=== PATIENT | female | born 1945 | race Caucasian/White ===

== ENCOUNTER 2021-04-24 20:41 | Emergency (ER) | payer OTHER ==
[~2021-04-24] VITALS: Ht 152.4 cm; Wt 75.8 kg
[2021-04-24 21:15] VITALS: BP 165/93
[2021-04-24] MEDS ORDERED: LIDOCAINE MPF 1% 10 MG/ML VIAL INJ ONE (22:35)
[2021-04-24] MEDS ORDERED: IBUPROFEN 600 MG TAB PO ONE (23:35)
[2021-04-24] MEDS ORDERED: IBUP-2213 PO (23:44)
[2021-04-25 00:10] VITALS: BP 169/91
[2021-04-25 01:40] LABS: APPEARANCE,SPUN,BODY FLUID CLEAR (CLEAR); APPEARANCE,UNSPUN,BODY FLUID CLEAR (CLEAR); COLOR,BODY FLUID LT YELLOW (LT YELLOW); SPECIMENTYPE,BODY FLUID SYNOVIAL
[2021-04-25 01:41] LABS: GLUCOSE,BODY FLUID 87 mg/dL; POLYNUCLEAR, BODY FLUID 90 %; RBC, BODY FLUID 2031 /cu. mm.; TOTAL VOLUME,BODY FLUID 20 mL; WBC, BODY FLUID 1338 /cu. mm.
== END 2021-04-25 00:10 | disposition home or self-care (01) ==
LOC: MED 20:41
DX: M02.361 Reiter's disease, right knee (principal); Z88.0 Allergy status to penicillin; Z79.899 Other long term (current) drug therapy
CPT/HCPCS: 20611; 36415; 73562; 82150; 82945; 84157; 87205; 89051; 99284; J2001

== ENCOUNTER 2021-05-04 18:37 | Emergency (ER) | payer OTHER, MEDICAID ==
[~2021-05-04] VITALS: Ht 149.9 cm; Wt 74.8 kg
[~2021-05-04 18:37] MED LIST: IBUP-2213 PO
--- NOTE | 2021-05-04 19:04 | NUR ---
CALLED PT'S NAME NO ANSWER AT THIS TIME
[2021-05-04 19:30] VITALS: BP 162/86
--- NOTE | 2021-05-04 19:33 | NUR ---
TO LOBBY A/W BED VIA WHEELCHAIR
--- NOTE | 2021-05-04 20:00 | NUR ---
SEEN AND EXAMINED BY SOPHIA
[2021-05-04] MEDS ORDERED: ACET-8386 PO (23:11)
[2021-05-04] MEDS ORDERED: DICL20GE TP (23:11)
[2021-05-04 23:20] VITALS: BP 142/80
--- NOTE | 2021-05-04 23:20 | NUR ---
Patient discharged with v/s stable. Written and verbal after care instructions given and explained. Patient alert, oriented and verbalized understanding of instructions. Wheel Chair Assisted with to car. All questions addressed prior to discharge. ID band removed. Patient advised to follow up with PMD. Rx of HYDROCODONE, VOLTAREN, given. Patient educated on indication of medication including possible reaction and side effects. Opportunity to ask questions provided and answered.
--- NOTE | 2021-05-07 09:12 | NUR ---
Called pt for re-evaluation and advised to return to ED. Spoke to her sister and pt is away on vacation. I asked the sister to contact pt and have her return here or see her pmd for re-evaluation of her knee.
== END 2021-05-04 23:20 | disposition home or self-care (01) ==
LOC: MED 18:37
DX: M13.861 Other specified arthritis, right knee (principal)
CPT/HCPCS: 73562; 99283